=== PATIENT | male | born 1970 | race African-American/Black ===

== ENCOUNTER 2023-08-01 11:24 | Inpatient (IN) | payer MEDICARE, MEDICAID ==
[~2023-08-01] VITALS: Ht 185.4 cm; Wt 80.5 kg
[2023-08-01] VITALS (23 sets, daily range): BP systolic 111–168; BP diastolic 68–110; PULSE 58–85; RESP 20–26; TEMP 97.4–98.5
[2023-08-01 12:30] LABS: HEMATOCRIT. 43.8 % (42.0-52.0); MEAN CORPUSCULAR HEMOGLOBIN 28.9 pg (28.0-32.0); MEAN CORPUSCULAR VOLUME 90.3 fL (80.0-94.0); MEAN PLATELET VOLUME 7.4 fl (7.4-10.4); PLATELET 189 x1000/uL (130-400); RED BLOOD CELL COUNT 4.85 mill/uL (4.7-6.1); RED CELL DISTRIBUTION WIDTH 14.5 % (11.6-14.6); WHITE BLOOD COUNT 8.5 x1000/uL (4.5-11.0)
[2023-08-01 12:42] LABS: ALANINE AMINOTRANSFERASE 20 IU/L (10-49); ALBUMIN 4.3 g/dL (3.2-4.8); ASPARTATE AMINOTRANSFERASE 34 IU/L (<34); BILIRUBIN TOTAL 0.2 mg/dL (0.1-1.0); CARBON DIOXIDE 27 mEq/L (21-32); CHLORIDE 103 mEq/L (98-107); CREATININE 0.9 mg/dL (0.6-1.3); GLUCOSE 130 mg/dL (70-105); POTASSIUM 3.5 mEq/L (3.5-5.1); PROTEIN TOTAL 7.2 g/dL (6.0-8.3); SODIUM 133 mEq/L (136-145); TROPONIN I HIGH SENSITIVITY 9 ng/L (3.0-53); UREA NITROGEN BLOOD 6 mg/dL (9-23)
[2023-08-01] MEDS: LORAZEPAM 2MG/ML INJ IM ONE (12:46)
[2023-08-01 12:48] LABS: ETHANOL BLOOD < 10 mg/dL (<10)
[2023-08-01 13:09] LABS: DIFFERENTIAL COMMENT 1
[2023-08-01] MEDS: LEVETIRACETAM 1000MG PREMIX 100 ML IV ONE (13:20)
[2023-08-01 13:30] LABS: PLATELET ESTIMATE NORMAL
[2023-08-01] MEDS ORDERED: ZOLPIDEM TARTRATE 5MG TABLET PO PRN (14:15)
[2023-08-01] MEDS ORDERED: ACETAMINOPHEN 650MG SUPP PR PRN ×2 (14:15)
[2023-08-01] MEDS ORDERED: IPRATROPIUM/ALBUTEROL 0.5-3(2.5)MG/3ML NEB HHN PRN (14:15)
[2023-08-01] MEDS: SODIUM CHLORIDE 0.9% 1,000 ML IV ONE (14:58)
[2023-08-01 15:12] LABS: BG BASE EXCESS -1.3 mmol/L (-2.0-2.0); BG CARBOXYHEMOGLOBIN 1.1 % (0.5-1.5); BG DEOXYHEMOGLOBIN 0.6 % (0.0-5.0); BG FRACTION INSPIRED OXYGEN 60; BG HCO3 ACT 28.3 mmol/L (22.0-26.0); BG METHEMOGLOBIN 0.3 % (0.0-1.5); BG OXYGEN SATURATION 99.4 % (92.0-98.5); BG PCO2 70.3 mmHg (35.0-45.0); BG PH 7.223 (7.350-7.450); BG PO2 210.7 mmHg (75.0-100.0); BG SAMPLE SITE RIGHT RADIAL; BG TOTAL HEMOGLOBIN 15.2 g/dL (12.0-18.0); BG VENT MODE MASK - SIMPLE
[2023-08-01] MEDS: PANTOPRAZOLE SODIUM 40 MG/VIAL IV SCH (15:15)
[2023-08-01 15:19] LABS: CARBAMAZEPINE < 0.4 ug/mL (4-12); CHOLESTEROL 147 mg/dL (<200); HDL CHOLESTEROL 66 mg/dL (>55); LDL CHOLESTEROL 68 mg/dL (5-100); PHENOBARBITAL < 3.0 ug/mL (15.0-40.0); PHENYTOIN < 2.0 ug/mL (10-20); PHOSPHORUS 2.8 mg/dL (2.5-4.9); T4 FREE 0.89 ng/dL (0.89-1.76); THYROID STIMULATING HORMONE 1.47 uIU/mL (0.55-4.78); TRIGLYCERIDE 60 mg/dL (0-150); VALPROIC ACID < 3.0 ug/mL (50-100)
[2023-08-01 15:20] LABS: PARTIAL THROMBOPLASTIN TIME 29.6 sec (23.4-31.0); PROTHROMBIN TIME 11.5 sec (9.6-11.0)
[2023-08-01] MEDS: SUCCINYLCHOLINE CHLORIDE 200MG/10ML IV ONE (15:30)
[2023-08-01] MEDS: PROPOFOL 10MG/ML 100ML 100 ML IV ONE (15:30)
[2023-08-01] MEDS ORDERED: PROPOFOL 10MG/ML 100ML 100 ML IV PRN (15:30)
[2023-08-01] MEDS: ETOMIDATE 2MG/ML 10ML VIAL IV ONE (15:30)
[2023-08-01] MEDS ORDERED: MIDAZOLAM 100MG/100ML PMX 100 ML IV PRN (16:00)
[2023-08-01] MEDS ORDERED: FENTANYL 2500MCG/250ML PMX 250 ML IV PRN (16:00)
[2023-08-01 16:22] LABS: CLARITY URINE CLEAR (CLEAR); COLOR URINE YELLOW (YELLOW); GLUCOSE URINE 1+ (NEGATIVE); KETONES URINE 1+ (NEGATIVE); LEUKOCYTE ESTERASE URINE NEGATIVE (NEGATIVE); NITRITE URINE NEGATIVE (NEGATIVE); OCCULT BLOOD URINE 1+ (NEGATIVE); PROTEIN URINE 1+ (NEGATIVE)
[2023-08-01] MEDS: FENTANYL 2500MCG/250ML PMX 250 ML IV PRN (16:34)
[2023-08-01] MEDS: MIDAZOLAM 100MG/100ML PMX 100 ML IV PRN (16:35)
[2023-08-01 16:43] LABS: BACTERIA URINE TRACE; RBC URINE 0-2 /hpf (0-2); SQUAMOUS EPITHELIAL CELL URINE RARE /lpf (RARE/1+); WBC URINE NONE SEEN /hpf (0-2)
[2023-08-01 16:51] LABS: BG BASE EXCESS -0.1 mmol/L (-2.0-2.0); BG CARBOXYHEMOGLOBIN 0.9 % (0.5-1.5); BG DEOXYHEMOGLOBIN 0.5 % (0.0-5.0); BG FRACTION INSPIRED OXYGEN 60; BG HCO3 ACT 26.7 mmol/L (22.0-26.0); BG METHEMOGLOBIN 0.3 % (0.0-1.5); BG OXYGEN SATURATION 99.5 % (92.0-98.5); BG OXYHEMOGLOBIN 98.3 % (94.0-97.0); BG PH 7.329 (7.350-7.450); BG PO2 217.9 mmHg (75.0-100.0); BG SAMPLE SITE RIGHT RADIAL; BG TOTAL HEMOGLOBIN 15.3 g/dL (12.0-18.0); BG VENT MODE VENT - AC
[2023-08-01 16:57] LABS: *AMPHETAMINES SCREEN URINE NEGATIVE (NEGATIVE); *BARBITURATES SCREEN URINE NEGATIVE (NEGATIVE); *BENZODIAZEPINES SCREEN URINE NEGATIVE (NEGATIVE); *COCAINE SCREEN URINE NEGATIVE (NEGATIVE); CANNABINOID URINE SCREEN NEGATIVE (NEGATIVE); ECSTASY MDMA SCREEN URINE NEGATIVE (NEGATIVE); METHADONE URINE SCREEN Neg (NEGATIVE); OPIATES URINE SCREEN NEGATIVE (NEGATIVE); PHENCYCLIDINE URINE SCREEN NEGATIVE (NEGATIVE)
[2023-08-01] MEDS: DEXT 5%/0.9% NACL 1,000 ML IV SCH (17:30)
[2023-08-01] MEDS: PROPOFOL 10MG/ML 100ML 100 ML IV PRN (18:14)
[2023-08-01] MEDS: MAGNESIUM 2 G PREMIX 50 ML IV NR (21:18)
[2023-08-01] MEDS: ENOXAPARIN 40MG/0.4ML SYR SUBCUT SCH (21:23)
[2023-08-02] VITALS (106 sets, daily range): BP systolic 89–165; BP diastolic 68–121; PULSE 43–128; RESP 16–39; TEMP 96–98.7
[2023-08-02 00:23] LABS: AMMONIA 53 uMol/L (<32)
[2023-08-02 00:27] LABS: ALANINE AMINOTRANSFERASE 19 IU/L (10-49); ALBUMIN 3.7 g/dL (3.2-4.8); ASPARTATE AMINOTRANSFERASE 36 IU/L (<34); BILIRUBIN TOTAL 0.6 mg/dL (0.1-1.0); CALCIUM 8.5 mg/dL (8.7-10.4); CARBON DIOXIDE 26 mEq/L (21-32); CHLORIDE 101 mEq/L (98-107); CREATININE 0.8 mg/dL (0.6-1.3); GLUCOSE 87 mg/dL (70-105); POTASSIUM 3.7 mEq/L (3.5-5.1); PROTEIN TOTAL 6.4 g/dL (6.0-8.3); SODIUM 135 mEq/L (136-145); UREA NITROGEN BLOOD 7 mg/dL (9-23)
[2023-08-02 00:31] LABS: CREATINE KINASE MB FRACTION 9.5 ng/mL (0.5-3.6)
[2023-08-02 02:31] LABS: LACTIC ACID 3.9 mmol/L (0.4-2.0)
[2023-08-02 04:51] LABS: BASOPHILS % 0.5 % (0.0-2.0); EOSINOPHILS % 1.8 % (0.0-5.0); HEMATOCRIT. 40.9 % (42.0-52.0); HEMOGLOBIN. 13.4 g/dL (14.0-18.0); LYMPHOCYTES % 18.7 % (20.0-50.0); MEAN CORPUSCULAR HEMOGLOBIN 29.2 pg (28.0-32.0); MEAN CORPUSCULAR HGB CONC 32.7 g/dL (31.0-37.0); MEAN CORPUSCULAR VOLUME 89.3 fL (80.0-94.0); MEAN PLATELET VOLUME 7.9 fl (7.4-10.4); MONOCYTES % 11.8 % (2.0-8.0); NEUTROPHILS % 67.2 % (40.0-76.0); PLATELET 168 x1000/uL (130-400); RED BLOOD CELL COUNT 4.58 mill/uL (4.7-6.1); WHITE BLOOD COUNT 5.3 x1000/uL (4.5-11.0)
[2023-08-02 08:40] LABS: CALCIUM 8.6 mg/dL (8.7-10.4); CARBON DIOXIDE 22 mEq/L (21-32); CHLORIDE 109 mEq/L (98-107); CREATININE 0.7 mg/dL (0.6-1.3); GLUCOSE 99 mg/dL (70-105); POTASSIUM 3.1 mEq/L (3.5-5.1); SODIUM 139 mEq/L (136-145); TRIGLYCERIDE 80 mg/dL (0-150); UREA NITROGEN BLOOD 8 mg/dL (9-23)
[2023-08-02 08:43] LABS: PHOSPHORUS 0.8 mg/dL (2.5-4.9)
[2023-08-02] MEDS: LACTULOSE 20G/30ML UDC NG NR (09:18)
[2023-08-02 09:43] LABS: BG CARBOXYHEMOGLOBIN 0.7 % (0.5-1.5); BG DEOXYHEMOGLOBIN 0.7 % (0.0-5.0); BG FRACTION INSPIRED OXYGEN 40; BG HCO3 ACT 22.4 mmol/L (22.0-26.0); BG METHEMOGLOBIN 0.1 % (0.0-1.5); BG OXYGEN SATURATION 99.3 % (92.0-98.5); BG OXYHEMOGLOBIN 98.5 % (94.0-97.0); BG PCO2 27.4 mmHg (35.0-45.0); BG PO2 167.8 mmHg (75.0-100.0); BG SAMPLE SITE RIGHT BRACHIAL; BG TOTAL HEMOGLOBIN 14.7 g/dL (12.0-18.0); BG VENT MODE VENT - AC
[2023-08-02] MEDS: POTASSIUM PHOSPHATE 30 MMOL in DEXT 5% WATER 490 ML IV NR ×2 (10:30→17:56)
[2023-08-02] MEDS: AZITHROMYCIN 500MG/250ML 250 ML IV SCH (10:31)
[2023-08-02] MEDS: CEFTRIAXONE 1GM/50ML 50 ML IV SCH (10:31)
[2023-08-02] MEDS: DEXMEDETOMIDINE 400 MCG/100 ML 100 ML IV PRN (16:52)
[2023-08-02] MEDS: HYDRALAZINE 20MG/ML VIAL IV PRN (20:38)
[2023-08-03] VITALS (108 sets, daily range): BP systolic 100–174; BP diastolic 70–132; PULSE 47–148; RESP 13–27; TEMP 98–98.4
[2023-08-03] MEDS: LORAZEPAM 2MG/ML INJ IV PRN (04:15)
[2023-08-03 04:58] LABS: BASOPHILS % 0.4 % (0.0-2.0); EOSINOPHILS % 0.5 % (0.0-5.0); HEMATOCRIT. 41.9 % (42.0-52.0); HEMOGLOBIN. 13.9 g/dL (14.0-18.0); LYMPHOCYTES % 11.8 % (20.0-50.0); MEAN CORPUSCULAR HEMOGLOBIN 29.3 pg (28.0-32.0); MEAN CORPUSCULAR HGB CONC 33.3 g/dL (31.0-37.0); MEAN PLATELET VOLUME 8.3 fl (7.4-10.4); MONOCYTES % 10.7 % (2.0-8.0); NEUTROPHILS % 76.6 % (40.0-76.0); PLATELET 174 x1000/uL (130-400); RED BLOOD CELL COUNT 4.76 mill/uL (4.7-6.1); RED CELL DISTRIBUTION WIDTH 14.5 % (11.6-14.6); WHITE BLOOD COUNT 7.4 x1000/uL (4.5-11.0)
[2023-08-03 05:02] LABS: AMMONIA 35 uMol/L (<32)
[2023-08-03 05:20] LABS: CALCIUM 8.2 mg/dL (8.7-10.4); CARBON DIOXIDE 19 mEq/L (21-32); CHLORIDE 109 mEq/L (98-107); CREATININE 0.6 mg/dL (0.6-1.3); GLUCOSE 148 mg/dL (70-105); PHOSPHORUS 2.8 mg/dL (2.5-4.9); POTASSIUM 3.4 mEq/L (3.5-5.1); SODIUM 136 mEq/L (136-145)
[2023-08-03 05:29] LABS: UREA NITROGEN BLOOD < 5 mg/dL (9-23)
[2023-08-03] MEDS: LACTULOSE 20G/30ML UDC PO NR (08:03)
[2023-08-03] MEDS: MAGNESIUM 4 G PREMIX 100 ML IV NR (08:03)
[2023-08-03] MEDS: KCL 20MEQ/100ML PREMIX 100 ML IV SCH (08:05)
[2023-08-03 16:12] LABS: CALCIUM 8.1 mg/dL (8.7-10.4); CARBON DIOXIDE 19 mEq/L (21-32); CHLORIDE 108 mEq/L (98-107); CREATININE 0.7 mg/dL (0.6-1.3); GLUCOSE 125 mg/dL (70-105); POTASSIUM 3.4 mEq/L (3.5-5.1); SODIUM 138 mEq/L (136-145)
[2023-08-03 16:14] LABS: UREA NITROGEN BLOOD < 5 mg/dL (9-23)
[2023-08-04] VITALS (107 sets, daily range): BP systolic 79–147; BP diastolic 42–106; PULSE 48–118; RESP 19–30; TEMP 93.5–99.4
[2023-08-04 06:19] LABS: ALANINE AMINOTRANSFERASE 17 IU/L (10-49); ALBUMIN 3.5 g/dL (3.2-4.8); ASPARTATE AMINOTRANSFERASE 21 IU/L (<34); BILIRUBIN TOTAL 0.4 mg/dL (0.1-1.0); CALCIUM 8.3 mg/dL (8.7-10.4); CARBON DIOXIDE 19 mEq/L (21-32); CHLORIDE 112 mEq/L (98-107); CREATININE 0.6 mg/dL (0.6-1.3); GLUCOSE 100 mg/dL (70-105); PHOSPHORUS 2.1 mg/dL (2.5-4.9); POTASSIUM 3.1 mEq/L (3.5-5.1); PROTEIN TOTAL 6.5 g/dL (6.0-8.3); SODIUM 140 mEq/L (136-145); UREA NITROGEN BLOOD 7 mg/dL (9-23)
[2023-08-04 06:25] LABS: BASOPHILS % 0.3 % (0.0-2.0); HEMOGLOBIN. 14.2 g/dL (14.0-18.0); LYMPHOCYTES % 18.9 % (20.0-50.0); MEAN CORPUSCULAR HEMOGLOBIN 29.1 pg (28.0-32.0); MEAN CORPUSCULAR HGB CONC 33.1 g/dL (31.0-37.0); MEAN PLATELET VOLUME 8.7 fl (7.4-10.4); MONOCYTES % 8.5 % (2.0-8.0); NEUTROPHILS % 71.3 % (40.0-76.0); PLATELET 148 x1000/uL (130-400); RED BLOOD CELL COUNT 4.89 mill/uL (4.7-6.1); RED CELL DISTRIBUTION WIDTH 14.7 % (11.6-14.6); WHITE BLOOD COUNT 6.8 x1000/uL (4.5-11.0)
[2023-08-04] MEDS: POTASSIUM PHOSPHATE 30 MMOL in SODIUM CHLORIDE 0.9% 490 ML IV ONE (09:08)
[2023-08-04] MEDS: MAGNESIUM 1 G PREMIX 100 ML IV NR (12:38)
[2023-08-04] MEDS: SODIUM CHLORIDE 0.9% 500 ML IV NR (12:38)
[2023-08-04] MEDS: MVI, ADULT NO.1 10 ML, THIAMINE HCL 100 MG, FOLIC ACID 1 MG in SODIUM CHLORIDE 0.9% 1,0... IV SCH (14:01)
[2023-08-04] MEDS ORDERED: SODIUM CHLORIDE 0.9% 500 ML IV ONE (15:30)
[2023-08-04] MEDS ORDERED: KETAMINE HCL 100 MG in SODIUM CHLORIDE 0.9% 98 ML IV ONE (15:30)
[2023-08-05] VITALS (108 sets, daily range): BP systolic 115–187; BP diastolic 46–124; PULSE 65–156; RESP 11–32; TEMP 98–98.3; O2SAT 98
[2023-08-05 05:20] LABS: BASOPHILS % 0.6 % (0.0-2.0); EOSINOPHILS % 0.7 % (0.0-5.0); HEMATOCRIT. 39.6 % (42.0-52.0); HEMOGLOBIN. 12.8 g/dL (14.0-18.0); LYMPHOCYTES % 15.2 % (20.0-50.0); MEAN CORPUSCULAR HGB CONC 32.3 g/dL (31.0-37.0); MEAN CORPUSCULAR VOLUME 89.8 fL (80.0-94.0); MEAN PLATELET VOLUME 8.4 fl (7.4-10.4); MONOCYTES % 9.1 % (2.0-8.0); NEUTROPHILS % 74.4 % (40.0-76.0); PLATELET 161 x1000/uL (130-400); RED BLOOD CELL COUNT 4.41 mill/uL (4.7-6.1); RED CELL DISTRIBUTION WIDTH 15.1 % (11.6-14.6); WHITE BLOOD COUNT 7.4 x1000/uL (4.5-11.0)
[2023-08-05 05:35] LABS: ALANINE AMINOTRANSFERASE 15 IU/L (10-49); ALBUMIN 3.3 g/dL (3.2-4.8); ASPARTATE AMINOTRANSFERASE 22 IU/L (<34); BILIRUBIN TOTAL 0.3 mg/dL (0.1-1.0); CARBON DIOXIDE 21 mEq/L (21-32); CHLORIDE 114 mEq/L (98-107); CREATININE 0.8 mg/dL (0.6-1.3); GLUCOSE 111 mg/dL (70-105); PHOSPHORUS 3.5 mg/dL (2.5-4.9); POTASSIUM 3.5 mEq/L (3.5-5.1); PROTEIN TOTAL 6.2 g/dL (6.0-8.3); SODIUM 141 mEq/L (136-145); UREA NITROGEN BLOOD 6 mg/dL (9-23)
[2023-08-05 07:35] LABS: AMMONIA 87 uMol/L (<32)
[2023-08-05] MEDS: MAGNESIUM 2 G PREMIX 50 ML IV NR (08:29)
[2023-08-05] MEDS: KETAMINE HCL 100 MG in SODIUM CHLORIDE 0.9% 98 ML IV ONE (08:29)
[2023-08-05] MEDS ORDERED: THIAMINE HCL 200 MG in SODIUM CHLORIDE 0.9% 98 ML IV SCH (09:45)
[2023-08-05] MEDS: KETAMINE HCL IV ONE (12:00)
[2023-08-05] MEDS: SODIUM CHLORIDE 0.9% IV ONE (12:00)
[2023-08-05 12:50] LABS: BG BASE EXCESS -3.6 mmol/L (-2.0-2.0); BG CARBOXYHEMOGLOBIN 0.4 % (0.5-1.5); BG DEOXYHEMOGLOBIN 1.4 % (0.0-5.0); BG FRACTION INSPIRED OXYGEN 40; BG HCO3 ACT 22.6 mmol/L (22.0-26.0); BG METHEMOGLOBIN 0.3 % (0.0-1.5); BG OXYGEN SATURATION 98.6 % (92.0-98.5); BG OXYHEMOGLOBIN 97.9 % (94.0-97.0); BG PCO2 44.8 mmHg (35.0-45.0); BG PO2 136.6 mmHg (75.0-100.0); BG SAMPLE SITE RIGHT RADIAL; BG TOTAL HEMOGLOBIN 13.5 g/dL (12.0-18.0); BG VENT MODE VENT - CPAP
[2023-08-05] MEDS: LIDOCAINE HCL 1% 10 MG/ML 10ML VIAL ONE (13:43)
[2023-08-05] MEDS: LACTULOSE 20G/30ML UDC NG NR (15:28)
[2023-08-05] MEDS: THIAMINE HCL IV SCH (15:30)
[2023-08-05] MEDS: SODIUM CHLORIDE 0.9% IV SCH (15:30)
[2023-08-05] MEDS: DEXT 5%/LACTATED RINGERS 1,000 ML IV SCH (15:34)
[2023-08-05] MEDS ORDERED: HYDRALAZINE 20MG/ML VIAL IV PRN (19:30)
[2023-08-05] MEDS: CLONIDINE 0.1MG TABLET PO PRN (22:42)
[2023-08-06] VITALS (75 sets, daily range): BP systolic 146–192; BP diastolic 78–172; PULSE 72–118; RESP 13–29; TEMP 97.7–98.9
[2023-08-06 05:44] LABS: BASOPHILS % 0.3 % (0.0-2.0); EOSINOPHILS % 0.5 % (0.0-5.0); HEMATOCRIT. 38.1 % (42.0-52.0); HEMOGLOBIN. 12.6 g/dL (14.0-18.0); LYMPHOCYTES % 12.6 % (20.0-50.0); MEAN CORPUSCULAR HEMOGLOBIN 29.5 pg (28.0-32.0); MEAN CORPUSCULAR HGB CONC 32.9 g/dL (31.0-37.0); MEAN CORPUSCULAR VOLUME 89.5 fL (80.0-94.0); MEAN PLATELET VOLUME 8.3 fl (7.4-10.4); MONOCYTES % 9.8 % (2.0-8.0); NEUTROPHILS % 76.8 % (40.0-76.0); PLATELET 167 x1000/uL (130-400); RED BLOOD CELL COUNT 4.26 mill/uL (4.7-6.1); RED CELL DISTRIBUTION WIDTH 14.4 % (11.6-14.6)
[2023-08-06 06:05] LABS: CALCIUM 8.5 mg/dL (8.7-10.4); CARBON DIOXIDE 24 mEq/L (21-32); CHLORIDE 108 mEq/L (98-107); CREATININE 0.7 mg/dL (0.6-1.3); GLUCOSE 108 mg/dL (70-105); POTASSIUM 3.9 mEq/L (3.5-5.1); SODIUM 135 mEq/L (136-145)
[2023-08-06 06:07] LABS: UREA NITROGEN BLOOD < 5 mg/dL (9-23)
[2023-08-06 06:22] LABS: AMMONIA 34 uMol/L (<32)
[2023-08-06] MEDS: MAGNESIUM 2 G PREMIX 50 ML IV NR (09:01)
[2023-08-06] MEDS: AMLODIPINE 10MG TABLET PO SCH (09:01)
[2023-08-06] MEDS: ONDANSETRON HCL 4MG/2ML INJ IV PRN (15:26)
[2023-08-06] MEDS: HYDRALAZINE HCL 50MG TABLET PO SCH (15:54)
[2023-08-07] VITALS (41 sets, daily range): BP systolic 140–178; BP diastolic 79–115; PULSE 69–117; RESP 13–57; TEMP 97.2–98.9
[2023-08-07 06:15] LABS: HEMOGLOBIN 13.2 g/dL (14.0-18.0); MEAN CORPUSCULAR HEMOGLOBIN 29.5 pg (28.0-32.0); MEAN CORPUSCULAR HGB CONC 32.9 g/dL (31.0-37.0); MEAN CORPUSCULAR VOLUME 89.5 fL (80.0-94.0); PLATELET 186 x1000/uL (130-400); RED BLOOD CELL COUNT 4.47 mill/uL (4.7-6.1); RED CELL DISTRIBUTION WIDTH 14.4 % (11.6-14.6); WHITE BLOOD COUNT 10.2 x1000/uL (4.5-11.0)
[2023-08-07 06:34] LABS: CALCIUM 8.5 mg/dL (8.7-10.4); CARBON DIOXIDE 25 mEq/L (21-32); CHLORIDE 97 mEq/L (98-107); CREATININE 0.6 mg/dL (0.6-1.3); GLUCOSE 132 mg/dL (70-105); PHOSPHORUS 2.6 mg/dL (2.5-4.9); SODIUM 130 mEq/L (136-145)
[2023-08-07 06:46] LABS: UREA NITROGEN BLOOD < 5 mg/dL (9-23)
[2023-08-07 06:54] LABS: FOLIC ACID (FOLATE) SERUM > 20.00 ng/mL (>5.38); VITAMIN B12 SERUM 821 pg/mL (211-911)
[2023-08-07] MEDS: MAGNESIUM 2 G PREMIX 50 ML IV NR (07:14)
[2023-08-07] MEDS: LOSARTAN 50 MG TABLET PO SCH (13:22)
[2023-08-07] MEDS: MAGNESIUM OXIDE 400MG TABLET PO SCH (17:44)
[2023-08-08] VITALS (10 sets, daily range): BP systolic 102–151; BP diastolic 59–95; PULSE 84–111; RESP 14–27; TEMP 97.8–98.8
[2023-08-08 06:58] LABS: AMMONIA < 17 uMol/L (<32)
[2023-08-08 07:05] LABS: CALCIUM 9.2 mg/dL (8.7-10.4); CARBON DIOXIDE 26 mEq/L (21-32); CHLORIDE 99 mEq/L (98-107); CREATININE 0.7 mg/dL (0.6-1.3); GLUCOSE 96 mg/dL (70-105); POTASSIUM 4.4 mEq/L (3.5-5.1); SODIUM 132 mEq/L (136-145); UREA NITROGEN BLOOD 10 mg/dL (9-23)
[2023-08-08 07:38] LABS: PHOSPHORUS 2.7 mg/dL (2.5-4.9)
[2023-08-08] MEDS: MULTIVITAMINS,THER W-MINERALS TABLET PO SCH (08:34)
[2023-08-08] MEDS: THIAMINE HCL 100MG TABLET PO SCH (08:34)
[2023-08-08] MEDS: FOLIC ACID 1MG TABLET PO SCH (08:35)
[2023-08-08] MEDS: CHOLECALCIFEROL (D3) 1000 UNIT TABLET PO SCH (09:03)
[2023-08-08] MEDS: MAGNESIUM 2 G PREMIX 50 ML IV NR (09:15)
== END 2023-08-08 18:55 | disposition left against medical advice (07) | DRG 207 ==
LOC: ER 11:24 → EDBEDREQTM 13:36 → EDBEDREQ 13:36 → MICUSO 14:14 → EDBEDREQSVC 15:53 → 5EST 08-07 10:00
PROVIDERS: ADMIT Preventive Medicine Clinical Informatics; ATTEND Preventive Medicine Clinical Informatics
PROC: 5A1955Z Respiratory Ventilation, Greater than 96 Consecutive Hours (ICD-10-PCS; principal; 2023-08-01)
PROC: 0BH17EZ Insertion of Endotracheal Airway into Trachea, Via Natural or Artificial Opening (ICD-10-PCS; 2023-08-01)
PROC: 05HM33Z Insertion of Infusion Device into Right Internal Jugular Vein, Percutaneous Approach (ICD-10-PCS; 2023-08-05)
PROC: B543ZZA Ultrasonography of Right Jugular Veins, Guidance (ICD-10-PCS; 2023-08-05)
DX: J96.01 Acute respiratory failure with hypoxia (principal); G92.8 Other toxic encephalopathy; E87.20 Acidosis, unspecified; E72.20 Disorder of urea cycle metabolism, unspecified; E87.29 Other acidosis; E87.1 Hypo-osmolality and hyponatremia; I16.9 Hypertensive crisis, unspecified; J96.02 Acute respiratory failure with hypercapnia; T68.XXXA Hypothermia, initial encounter; R56.9 Unspecified convulsions; I95.9 Hypotension, unspecified; E83.51 Hypocalcemia; E83.42 Hypomagnesemia; E83.39 Other disorders of phosphorus metabolism; R73.9 Hyperglycemia, unspecified; D64.9 Anemia, unspecified; R00.1 Bradycardia, unspecified; I10 Essential (primary) hypertension; S80.211A Abrasion, right knee, initial encounter; S80.212A Abrasion, left knee, initial encounter; X58.XXXA Exposure to other specified factors, initial encounter; Y93.89 Activity, other specified; Y92.89 Other specified places as the place of occurrence of the external cause; Y99.8 Other external cause status; Z78.1 Physical restraint status
CPT/HCPCS: 31500; 36415; 36573; 36600; 71045; 74018; 80048; 80053; 80061; 80156; 80165; 80184; 80185; 80305; 80320; 81003; 82140; 82306; 82330; 82375; 82550; 82553; 82607; 82746; 82805; 82962; 83036; 83605; 83735; 83880; 83930; 83970; 84100; 84145; 84439; 84443; 84478; 84484; 85025; 85027; 87070; 92610; 93005; 93971; 94002; 94003; 97116; 97162; 97166; 99291; C1725; C9113; J0360; J0456; J0696; J1650; J1953; J2060; J2250; J2405; J2704; J3010; J3411; J3475; J3480; J3490; J7030; J7040; J7050; J7060; J7121; Q9957; G0480